=== PATIENT | female | born 1960 | race Caucasian/White ===

== ENCOUNTER 2020-10-12 07:43 | Emergency (ER) | payer OTHER ==
[~2020-10-12] VITALS: Ht 147.3 cm; Wt 41.7 kg
[2020-10-12 07:54] VITALS: BP_SYST 114
[2020-10-12 08:30] LABS: BASOPHILS % (AUTO) 0.6 % (0.0-2.0); EOSINOPHILS # (AUTO) 0.1 K/uL (0.0-0.4); EOSINOPHILS % (AUTO) 1.6 % (0.0-4.0); HEMATOCRIT 37.4 % (36-48); HEMOGLOBIN 13.1 g/dL (12.0-16.0); LYMPHOCYTES # (AUTO) 1.4 K/uL (1.0-5.5); LYMPHOCYTES % (AUTO) 26.7 % (20.5-51.5); MEAN CORPUSCULAR HEMOGLOBIN 31 pg (27-31); MEAN CORPUSCULAR HGB CONC 35 % (32-36); MEAN CORPUSCULAR VOLUME 88 fL (79.0-98.0); MONOCYTES # (AUTO) 0.2 K/uL (0.0-1.0); MONOCYTES % (AUTO) 3.5 % (1.7-9.3); NEUTROPHILS # (AUTO) 3.5 K/uL (1.8-7.7); NEUTROPHILS % (AUTO) 67.6 % (40.0-70.0); PLATELET COUNT (AUTO) 185 K/uL (130-430); RED BLOOD CELL COUNT(AUTO) 4.24 MIL/uL (4.2-6.2); RED CELL DISTRIBUTION WIDTH 13.5 % (9.0-15.0); WHITE BLOOD COUNT (AUTO) 5.2 K/uL (4.8-10.8)
[2020-10-12 08:37] LABS: CREATININE 0.69 mg/dL (0.55-1.30); POTASSIUM 3.1 mmol/L (3.5-5.1)
[2020-10-12 08:38] LABS: PROTHROMBIN TIME 10.2 SECS (9.5-12.5)
[2020-10-12 08:43] LABS: ALBUMIN 3.7 g/dL (3.4-4.8); TOTAL BILIRUBIN 0.5 mg/dL (0.0-1.0)
[2020-10-12 08:44] LABS: BILIRUBIN,URINE NEGATIVE (NEGATIVE); BLOOD, URINE NEGATIVE (NEGATIVE); CLARITY/URINE CLEAR (CLEAR); COLOR,URINE YELLOW (YELLOW); GLUCOSE,URINE NEGATIVE (NEGATIVE); KETONES,URINE NEGATIVE (NEGATIVE); LEUKOCYTE ESTERASE ,URINE TRACE (NEGATIVE); NITRITE, URINE NEGATIVE (NEGATIVE); PROTEIN URINE NEGATIVE (NEGATIVE); UROBILINOGEN,URINE 0.2 (0.2-1.0)
[2020-10-12 08:57] LABS: BACTERIA,URINE RARE /HPF (None Seen); RBC,URINE 0-3 /HPF (0-3)
[2020-10-12] MEDS ORDERED: POTASSIUM CHLORIDE 20 MEQ TAB.PRT.SR PO ONE (10:45)
[2020-10-12] MEDS ORDERED: ONDA-8 TL (10:59)
[2020-10-12] MEDS ORDERED: CIPR500T5 PO (10:59)
[2020-10-12 11:33] VITALS: BP_SYST 120
== END 2020-10-12 11:33 | disposition home or self-care (01) ==
LOC: SED 07:43
DX: R55 Syncope and collapse (principal); N39.0 Urinary tract infection, site not specified; Z88.6 Allergy status to analgesic agent; Z79.899 Other long term (current) drug therapy; Z20.822 Contact with and (suspected) exposure to COVID-19
CPT/HCPCS: 36415; 70450-TC; 71045; 76376; 80053; 81000-TC; 84484; 85025; 85610-TC; 85730-TC; 93005; 99285